=== PATIENT | male | born 1970 | race Caucasian/White ===

== ENCOUNTER 2019-10-11 18:27 | Emergency (ER) | payer MEDICARE, SELFPAY ==
[2019-10-11 18:35] VITALS: BP 139/96; PULSE 102; RESP 14; TEMP 36.9; O2SAT 97; BMI 22.1
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
[2019-10-11] MEDS: HYDROcodone-acetaminophen 5-325 mg Tablet 1 TAB PO (19:31)
[2019-10-11 19:36] VITALS: BP 148/62; PULSE 84; RESP 17; O2SAT 96
--- NOTE | 2019-10-12 09:19 | DCPLANNER ---
Addendum entered by Maggie Barrientos 10/12/19 09:50: Elaina from ortho called casework manager back, stating that after review of patients chart, that patient will need to follow up with a hand specialist or will need to follow up with physician that did patients surgery originally. Clinic called patient and informed patient of this. Original Note: special events manager had message to schedule a follow up appointment for patient with ortho. special events manager called the ortho clinic, spoke with Elaina, gave clinic patients information. special events manager was told that patients information would be printed and reviewed. Clinic will call patient with appointment information.
== END 2019-10-11 19:40 | disposition home or self-care (01) ==
PROVIDERS: Emergency Provider Nurse Practitioner Family; PCP Family Medicine
DX: S63.501A Unspecified sprain of right wrist, initial encounter (principal); S63.011A Subluxation of distal radioulnar joint of right wrist, initial encounter; M12.531 Traumatic arthropathy, right wrist; Z79.82 Long term (current) use of aspirin; F17.210 Nicotine dependence, cigarettes, uncomplicated; V89.2XXA Person injured in unspecified motor-vehicle accident, traffic, initial encounter
CPT/HCPCS: 12345; 73110; 99281; 99283

== ENCOUNTER 2020-03-30 09:36 | Emergency (ER) | payer MEDICARE, MEDICAID, SELFPAY ==
[2020-03-30 09:49] VITALS: BP 171/103; PULSE 114; RESP 18; TEMP 37.2; O2SAT 97; BMI 23.6
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
[2020-03-30 10:06] VITALS: BP 149/102; PULSE 108; RESP 18; O2SAT 108
--- NOTE | 2020-03-30 10:10 | PC.NURSE ---
PATIENT WAS NOT GIVEN TETANUS WAS ALREADY DISCHARGED
[2020-03-30] MEDS: tetanus-diphtheria tox (adult) 0.5 mL SDV IM (10:16)
--- NOTE | 2020-03-30 10:17 | PC.NURSE ---
CANCEL PREVIOUS NOTE WAS ABLE TO CATCH PATIENT AND GIVE INJECTION
== END 2020-03-30 10:08 | disposition home or self-care (01) ==
PROVIDERS: Emergency Provider Physician Assistant; PCP Family Medicine
DX: L02.413 Cutaneous abscess of right upper limb (principal); I10 Essential (primary) hypertension; F17.210 Nicotine dependence, cigarettes, uncomplicated; Z23 Encounter for immunization
CPT/HCPCS: 12345; 90471; 90714; 99281; 99282